=== PATIENT | female | born 1985 | race Caucasian/White ===

== ENCOUNTER 2016-07-05 21:51 | Emergency (ER) | payer OTHER ==
[~2016-07-05] VITALS: Ht 162.6 cm; Wt 119.6 kg
[~2016-07-05 21:51] MED LIST: AMOXICILLIN875 MG PO; MOTRIN800 MG PO; PREDNISONE10 M1 PO; PROAIR HFA8.5 GM; SILENOR3 MG PO; TESSALON PERLE100 MG PO
[2016-07-06 00:21] LABS: ADD MIUA? YES; BILIRUBIN NEGATIVE; BLOOD LARGE; COLOR YELLOW ((YELLOW)); GLUCOSE (STRIP) NEGATIVE; KETONES NEGATIVE; LEUKOCYTES LARGE; NITRITE NEGATIVE; PROTEIN (STRIP) 30; SPECIFIC GRAVITY 1.025 (1.000-1.030)
[2016-07-06] MEDS ORDERED: QUETIAPINE FUMA25 MG PO (00:32)
[2016-07-06 00:45] LABS: BACTERIA RARE /HPF; CALCIUM OXALATE CRYSTALS 3+ /HPF; EPITHELIAL CELLS 1+ /HPF; MUCUS TRACE /LPF; RED BLOOD CELLS 0-5 /HPF (0-5); UCUL ADDED? NO; WHITE BLOOD CELLS 15-20 /HPF (0-5)
[2016-07-06] MEDS ORDERED: KEFLEX500 MG PO (01:07)
[2016-07-06] MEDS ORDERED: PYRIDIUM200 MG PO (01:07)
[2016-07-06 01:14] VITALS: BP 136/90
== END 2016-07-06 01:15 | disposition home or self-care (01) ==
LOC: EME 21:51
PROVIDERS: Physician Assistant
DX: N39.0 Urinary tract infection, site not specified (principal); R31.9 Hematuria, unspecified
CPT/HCPCS: 81003; 87086; 99281; 99283